=== PATIENT | female | born 1960 | race Caucasian/White ===

== ENCOUNTER 2018-04-07 16:03 | Inpatient (IN) | payer BC, SELFPAY ==
[2018-04-07 17:02] LABS: Absolute Lymphocytes (CBC) 1.2 K/uL (0.7-4.9); Absolute Monocytes 1.3 K/uL (0.1-1.3); Absolute Neutrophil 14.3 K/uL (1.8-8.0); Basophils % 0.4 % (0-1.3); Eosinophils % 0.1 % (0-4.4); Hematocrit 37.5 % (36.0-45.0); Lymphocytes % 7.3 % (15.3-44.8); MCH 30.1 pg (27.0-35.0); MCV 88.8 fL (80-100); MPV 8.1 fL (7.6-11.3); Monocytes % 7.4 % (3.3-12.3); RBC Red Blood Cell Count 4.22 M/uL (3.86-4.86)
[2018-04-07 17:05] LABS: Protime INR 1.18
[2018-04-07] MEDS ORDERED: NA CHLORIDE 0.9% 2,000 ML ONE (17:10)
[2018-04-07] MEDS ORDERED: ONDANSETRON 4 MG/2 ML VIAL ONE ×2 (17:10→18:03)
[2018-04-07] MEDS ORDERED: FENTANYL CITR 100 MCG/2 ML ONE ×2 (17:10→18:37)
[2018-04-07 17:24] LABS: ALT/SGPT 23 U/L (12-78); AST/SGOT 15 U/L (15-37); Albumin 3.6 g/dL (3.4-5.0); Alkaline Phosphatase 78 U/L (45-117); BUN Blood Urea Nitrogen 10 mg/dL (7-18); Bicarbonate 21 mmol/L (21-32); Bilirubin Direct 0.2 mg/dL (0-0.2); Bilirubin Total 0.9 mg/dL (0.2-1.0); Glucose Level 102 mg/dL (74-106); Lipase 102 U/L (73-393); Magnesium 2.4 mg/dL (1.8-2.4); NT PRO-BNP 225 pg/mL (<125); Potassium 3.6 mmol/L (3.5-5.1); Protein, Total 8.1 g/dL (6.4-8.2); Sodium Level 136 mmol/L (136-145); Troponin (Emerg Dept Use Only) < 0.02 ng/mL (0.0-0.045)
[2018-04-07 17:32] LABS: Urine Blood 2+ (NEG); Urine Glucose NEGATIVE (NEG); Urine Protein NEGATIVE (NEG); Urine pH 5.5 (5.0-7.0)
--- NOTE | 2018-04-07 17:52 | RAD REPORT ---
EXAM DESCRIPTION: CT - Abdomen Pelvis W Contrast - 04/07/2018 5:39 pm CLINICAL HISTORY: Abdominal pain COMPARISON: None. TECHNIQUE: Biphasic, helical CT imaging of the abdomen and pelvis was performed following 100 ml non -ionic IV contrast. No oral contrast. All CT scans are performed using dose optimization technique as appropriate and may include automated exposure control or mA/KV adjustment according to patient size. FINDINGS: No suspicious findings in the lung bases. Patient has a very minimal hiatal hernia. No per icardial thickening or effusion. The liver, spleen, and pancreas show no suspicious findings. Gallbladder and biliary tree are also wi thout suspicious finding. Symmetric renal function is seen with no hydronephrosis or suspicious renal mass. Fully contracted ur inary bladder shows no suspicious finding. Uterus is absent. No acute ovarian finding. No gastric acute finding. No acute small bowel finding. No acute process of the colon. The appendix is grossly abnormal dilated to 13 mm with wall thickening. Periappendiceal inflammatory stranding is present. There are multiple 4-6 mm sized appendicoliths. Small quantity of free fluid is present in the right adnexa and dependent portion of the pelvis. No abscess or free air. Base of the appendix is in a classic right lower quadrant location. Daily the appendix extends posteriorly and i nferiorly into the pelvis. No hernia, mass or bulky lymphadenopathy. No adrenal abnormality. No suspicious bony findings. IMPRESSION: Acute appendicitis with probable perforation. Multiple appendicoliths are present. No abscess or free air. Base of the appendix is classic right lower quadrant location with the tip of the appendix extending posteriorly and inferiorly into the pelvis.
--- NOTE | 2018-04-07 17:57 | ER ---
Nurse's Notes [facility] Name: Sherita Gonzalez Age: 57 yrs Sex: Female : 1960 Arrival Date: 04/07/2018 Time: 16:09 Bed 30 Private MD: Diagnosis: Acute appendicitis with generalized peritonitis Presentation: 04/07 16:23 Presenting complaint: Patient states: upper abd pain that began yesterday. Pt reports aa5 nausea, denies vomiting. Transition of care: patient was not received from another setting of care. Onset of symptoms was March 2018. Risk Assessment: Do you want to hurt yourself or someone else? Patient reports no desire to harm self or others. Initial Sepsis Screen: Does the patient meet any 2 criteria? No. Patient's initial sepsis screen is negative. Does the patient have a suspected source of infection? No. Patient's initial sepsis screen is negative. Care prior to arrival: None. 16:23 Method Of Arrival: Wheelchair aa5 16:23 Acuity: TRACEE 2 aa5 Historical: - Allergies: 16:26 No Known Allergies; aa5 - Home Meds: 16:26 Omeprazole Oral [Active]; sertraline 100 mg oral tab [Active]; aa5 - PMHx: 16:26 Acid Reflux; aa5 - PSHx: 16:26 Partial hysterectomy; aa5 - Immunization history:: Flu vaccine is not up to date. - Social history:: Smoking status: Patient/guardian denies using tobacco. - Ebola Screening: : No symptoms or risks identified at this time. Screenin:39 Abuse screen: Denies threats or abuse. Nutritional screening: No deficits noted. tl3 Tuberculosis screening: No symptoms or risk factors identified. Fall Risk None identified. Assessment: 16:39 General: Appears uncomfortable, well groomed, well developed, well nourished, Behavior tl3 is cooperative, appropriate for age. Pain: Complains of pain in abdomen. Neuro: Level of Consciousness is awake, alert, obeys commands. Cardiovascular: Patient's skin is warm and dry. Respiratory: Airway is patent Respiratory effort is even, unlabored, Respiratory pattern is regular, symmetrical. Respiratory: Reports cough that is dry, since couple of weeks. GI: Bowel sounds present X 4 quads. Abdomen is tender to palpation X 4 quads. : No signs and/or symptoms were reported regarding the genitourinary system. EENT: No signs and/or symptoms were reported regarding the EENT system. Derm: No signs and/or symptoms reported regarding the dermatologic system. Musculoskeletal: No signs and/or symptoms reported regarding the musculoskeletal system. 18:10 Reassessment: No changes from previously documented assessment. Patient and/or family tl3 updated on plan of care and expected duration. Pain level reassessed. Patient is alert, oriented x 3, equal unlabored respirations, skin warm/dry/pink. family at bedside POC discussed, awaiting surgeon to come assess pt. 18:30 Reassessment: No changes from previously documented assessment. Patient and/or family tl3 updated on plan of care and expected duration. Pain level reassessed. Patient is alert, oriented x 3, equal unlabored respirations, skin warm/dry/pink. surgery here to transport pt. Vital Signs: 16:26 BP 86 / 66; Pulse 92; Resp 18 S; Temp 98.9(TE); Pulse Ox 96% on R/A; Pain 9/10; aa5 16:39 BP 137 / 81; Pulse 88; Resp 18; Pulse Ox 98% on R/A; tl3 18:10 BP 112 / 66; Pulse 84; Resp 18; Pulse Ox 100% on R/A; tl3 18:30 BP 112 / 66; Pulse 86; Resp 18; Temp 99(O); Pulse Ox 100% on R/A; tl3 ED Course: 16:09 Patient arrived in ED. mr 16:24 Triage completed. aa5 16:24 Arm band placed on. aa5 16:30 Boris Bertrand PA is PHCP. jr8 16:30 Estuardo Valencia MD is Attending Physician. jr8 16:30 Skye Orlando, DESIRE is Primary Nurse. tl3 16:39 Patient has correct armband on for positive identification. Bed in low position. Side tl3 rails up X 1. Adult w/ patient. gambling monitor on. Pulse ox on. NIBP on. 16:39 No provider procedures requiring assistance completed. tl3 16:39 X-ray(s) taken. tl3 16:57 XRAY Chest (1 view) Sent. tl3 17:07 XRAY Chest (1 view) In Process Unspecified. EDMS 17:08 EKG done, by ED staff. tm3 17:[address] via wheelchair. vm2 17:38 CT completed. Patient tolerated procedure well. Patient moved back from CT. vm2 17:53 Surgeon called and connected Dr. Iraheta with Boris ROLAND for patient admission consultation. eb 17:56 Harman Iraheta MD is Hospitalizing Provider. jr8 18:03 CT Abd/Pelvis - W/Contrast In Process Unspecified. EDMS 18:30 Patient admitted, IV remains in place. tl3 Administered Medications: 16:56 Drug: NS 0.9% 1000 ml Route: IV; Rate: 1000 ml; Site: right forearm; Delivery: Primary tl3 tubing; 18:58 Follow up: IV Status: Infusion continued upon admission tl3 16:56 Drug: Zofran 4 mg Route: IVP; Infused Over: 2 mins; Site: right femoral; tl3 18:57 Follow up: Response: No adverse reaction tl3 16:56 Drug: NS 0.9% 1000 ml Route: IV; Rate: 1000 ml; Site: right forearm; Delivery: Primary tl3 tubing; 18:57 Follow up: IV Status: Completed infusion; IV Intake: 1000ml tl3 16:57 Drug: fentaNYL (PF) 50 mcg Route: IVP; Infused Over: 2 mins; Site: right forearm; tl3 18:57 Follow up: Response: No adverse reaction tl3 18:11 Drug: Zosyn 3.375 grams Route: IVPB; Infused Over: 60 mins; Site: right forearm; tl3 Delivery: Primary tubing; 18:56 Follow up: IV Status: Infusion continued upon admission; IV Intake: 30ml tl3 Intake: 18:56 IV: 30ml; Total: 30ml. tl3 18:57 IV: 1000ml; Total: 1030ml. tl3 Outcome: 17:56 Decision to Hospitalize by Provider. jr8 18:30 Admitted to OR accompanied by nurse, via stretcher, with chart. tl3 18:30 Condition: stable 18:30 Instructed on the need for admit. 18:59 Patient left the ED. tl3 Signatures: Dispatcher [employer] EDMS Gigi Vee tm3 Jessica Parkinson mr Ada Hernandez, RN RN aa5 Boris Bertrand PA PA jr8 Angelina Daley 2 Skye Orlando RN RN tl3 Odilia Hay Corrections: (The following items were deleted from the chart) 16:27 16:23 Acuity: TRACEE 3 aa5 aa5
--- NOTE | 2018-04-07 17:57 | EDPHYS ---
Physician Documentation [facility] Name: Sherita Gonzalez Age: 57 yrs Sex: Female : 1960 Arrival Date: 04/07/2018 Time: 16:09 Bed 30 Private MD: ED Physician Estuardo Valencia HPI: 04/07 16:39 This 57 yrs old Female presents to ER via Wheelchair with complaints of jr8 Abdominal Pain. 16:39 The patient presents with abdominal pain that is diffuse. Onset: The symptoms/episode jr8 began/occurred acutely, today. The symptoms do not radiate. Associated signs and symptoms: Pertinent positives: nausea and vomiting. The symptoms are described as stabbing. Modifying factors: The symptoms are alleviated by nothing, the symptoms are aggravated by movement. Severity of pain: At its worst the pain was moderate in the emergency department the pain is unchanged. The patient has not experienced similar symptoms in the past. The patient has not recently seen a physician. Historical: - Allergies: 16:26 No Known Allergies; aa5 - Home Meds: 16:26 Omeprazole Oral [Active]; sertraline 100 mg oral tab [Active]; aa5 - PMHx: 16:26 Acid Reflux; aa5 - PSHx: 16:26 Partial hysterectomy; aa5 - Immunization history:: Flu vaccine is not up to date. - Social history:: Smoking status: Patient/guardian denies using tobacco. - Ebola Screening: : No symptoms or risks identified at this time. ROS: 16:39 Eyes: Negative for injury, pain, redness, and discharge, ENT: Negative for injury, jr8 pain, and discharge, Neck: Negative for injury, pain, and swelling, Cardiovascular: Negative for chest pain, palpitations, and edema, Respiratory: Negative for shortness of breath, cough, wheezing, and pleuritic chest pain, Back: Negative for injury and pain, MS/Extremity: Negative for injury and deformity, Skin: Negative for injury, rash, and discoloration, Neuro: Negative for headache, weakness, numbness, tingling, and seizure. 16:39 Abdomen/GI: Positive for abdominal pain, nausea and vomiting, Negative for diarrhea, abdominal cramps, abdominal distension, anorexia, dysphagia, hematemesis, black/tarry stool, rectal pain, rectal bleeding, bowel incontinence, flatulence. Exam: 16:39 Eyes: Pupils equal round and reactive to light, extra-ocular motions intact. Lids and jr8 lashes normal. Conjunctiva and sclera are non-icteric and not injected. Cornea within normal limits. Periorbital areas with no swelling, redness, or edema. ENT: Nares patent. No nasal discharge, no septal abnormalities noted. Tympanic membranes are normal and external auditory canals are clear. Oropharynx with no redness, swelling, or masses, exudates, or evidence of obstruction, uvula midline. Mucous membranes moist. Neck: Trachea midline, no thyromegaly or masses palpated, and no cervical lymphadenopathy. Supple, full range of motion without nuchal rigidity, or vertebral point tenderness. No Meningismus. Cardiovascular: Regular rate and rhythm with a normal S1 and S2. No gallops, murmurs, or rubs. Normal PMI, no JVD. No pulse deficits. Respiratory: Lungs have equal breath sounds bilaterally, clear to auscultation and percussion. No rales, rhonchi or wheezes noted. No increased work of breathing, no retractions or nasal flaring. Back: No spinal tenderness. No costovertebral tenderness. Full range of motion. Skin: Warm, dry with normal turgor. Normal color with no rashes, no lesions, and no evidence of cellulitis. MS/ Extremity: Pulses equal, no cyanosis. Neurovascular intact. Full, normal range of motion. Neuro: Awake and alert, GCS 15, oriented to person, place, time, and situation. Cranial nerves II-XII grossly intact. Motor strength 5/5 in all extremities. Sensory grossly intact. Cerebellar exam normal. Normal gait. 16:39 Abdomen/GI: Inspection: abdomen appears normal, Bowel sounds: normal, in the right upper quadrant and left upper quadrant, diminished, in the right lower quadrant and left lower quadrant, Palpation: soft, in all quadrants, moderate abdominal tenderness, in the left upper quadrant, right lower quadrant and left lower quadrant, mass, is not appreciated, rebound tenderness, is appreciated in the right lower quadrant, voluntary guarding, is not appreciated, involuntary guarding, is not appreciated, no appreciated organomegaly, Indicators: McBurney's point is tender, Blount's sign is negative, Rovsing's sign is negative, Liver: tenderness, is not appreciated. Vital Signs: 16:26 BP 86 / 66; Pulse 92; Resp 18 S; Temp 98.9(TE); Pulse Ox 96% on R/A; Pain 9/10; aa5 16:39 BP 137 / 81; Pulse 88; Resp 18; Pulse Ox 98% on R/A; tl3 18:10 BP 112 / 66; Pulse 84; Resp 18; Pulse Ox 100% on R/A; tl3 18:30 BP 112 / 66; Pulse 86; Resp 18; Temp 99(O); Pulse Ox 100% on R/A; tl3 MDM: 16:30 Patient medically screened. 17:54 Data reviewed: vital signs, nurses notes, lab test result(s), radiologic studies, CT [facility] scan, plain films, and as a result, I will admit patient. Data interpreted: Pulse oximetry: on room air is 98 %. Interpretation: normal. Counseling: I had a detailed discussion with the patient and/or guardian regarding: the historical points, exam findings, and any diagnostic results supporting the discharge/admit diagnosis, lab results, radiology results, the need for further work-up and treatment in the hospital. Physician consultation: Harman Iraheta MD was called at 17:55, was contacted at 17:55, regarding admission, to the operating room, consult, patient's condition, and will see patient in OR, shortly. 04/07 16:30 Order name: Basic Metabolic Panel; Complete Time: 17:04/07 16:30 Order name: CBC with Diff; Complete Time: 17:04/07 16:30 Order name: LFT's; Complete Time: 17:04/07 16:30 Order name: Magnesium; Complete Time: 17:04/07 16:30 Order name: NT PRO-BNP; Complete Time: 17:04/07 16:30 Order name: PT-INR; Complete Time: 17:08 04/07 16:30 Order name: Troponin (emerg Dept Use Only); Complete Time: 17:04/07 16:30 Order name: XRAY Chest (1 view) 04/07 16:30 Order name: Lipase; Complete Time: 17:04/07 17:14 Order name: CT Abd/Pelvis - W/Contrast 04/07 17:22 Order name: Urine Dipstick--Ancillary (enter results) 04/07 16:30 Order name: EKG; Complete Time: 16:31 [facility] 04/07 16:30 Order name: Cardiac monitoring; Complete Time: 16:57 [facility] 04/07 16:30 Order name: EKG - Nurse/Tech; Complete Time: 16:57 [facility] 04/07 16:30 Order name: IV Saline Lock; Complete Time: 16:57 [facility] 04/07 16:30 Order name: Labs collected and sent; Complete Time: 16:57 [facility] 04/07 16:30 Order name: O2 Per Protocol; Complete Time: 16:57 [facility] 04/07 16:30 Order name: O2 Sat Monitoring; Complete Time: 16:57 Administered Medications: 16:56 Drug: NS 0.9% 1000 ml Route: IV; Rate: 1000 ml; Site: right forearm; Delivery: Primary tl3 tubing; 18:58 Follow up: IV Status: Infusion continued upon admission tl3 16:56 Drug: Zofran 4 mg Route: IVP; Infused Over: 2 mins; Site: right femoral; tl3 18:57 Follow up: Response: No adverse reaction tl3 16:56 Drug: NS 0.9% 1000 ml Route: IV; Rate: 1000 ml; Site: right forearm; Delivery: Primary tl3 tubing; 18:57 Follow up: IV Status: Completed infusion; IV Intake: 1000ml tl3 16:57 Drug: fentaNYL (PF) 50 mcg Route: IVP; Infused Over: 2 mins; Site: right forearm; tl3 18:57 Follow up: Response: No adverse reaction tl3 18:11 Drug: Zosyn 3.375 grams Route: IVPB; Infused Over: 60 mins; Site: right forearm; tl3 Delivery: Primary tubing; 18:56 Follow up: IV Status: Infusion continued upon admission; IV Intake: 30ml tl3 Disposition: 04/07/18 17:56 Hospitalization ordered by Harman Iraheta for Inpatient Admission. Preliminary diagnosis is Acute appendicitis with generalized peritonitis. - Bed requested for Operating Room. - Status is Inpatient Admission. tl3 - Condition is Fair. - Problem is new. - Symptoms have improved. UTI on Admission? No Addendum: 04/10/2018 08:13 Co-signature as Attending Physician, Estuardo Valencia MD I agree with the assessment and c anguiano plan of care. Signatures: Dispatcher [employer] Estuardo Patel MD MD cha Calderon, Audri, RN RN aa5 Boris Bertrand PA PA jr8 Skye Orlando, RN RN tl3 Corrections: (The following items were deleted from the chart) 04/07 17:56 17:54 EKG - Nurse/Tech ordered. jr8 jr8 17:57 16:39 Abdomen/GI: Inspection: abdomen appears normal, Bowel sounds: high pitched, all jr8 quadrants. Palpation: soft, in all quadrants, moderate abdominal tenderness, in the left upper quadrant, right lower quadrant and left lower quadrant, mass, is not appreciated, rebound tenderness, is not appreciated, voluntary guarding, is not appreciated, involuntary guarding, is not appreciated, no appreciated organomegaly, Indicators: McBurney's point is not tender, Blount's sign is negative, Rovsing's sign is negative, Liver: tenderness, is not appreciated, jr8 18:59 17:56 Hospitalization Ordered by Harman Iraheta MD for Inpatient Admission. Preliminary tl3 diagnosis is Acute appendicitis with generalized peritonitis. Bed requested for Operating Room. Status is Inpatient Admission. Condition is Fair. Problem is new. Symptoms have improved. UTI on Admission? No. jr8
[2018-04-07] MEDS ORDERED: HYDROMORPHONE HCL 1 MG/ML INJ ONE ×2 (18:03→20:37)
[2018-04-07] MEDS ORDERED: PIPER/TAZO/NS 3.375gm 3.375 GM/100 ML BAG ONE (18:06)
--- NOTE | 2018-04-07 18:31 | RAD REPORT ---
EXAM DESCRIPTION: RAD - Chest Single View - 04/07/2018 5:06 pm CLINICAL HISTORY: Abdominal pain, appendicitis, preop chest examination COMPARISON: None. TECHNIQUE: AP portable chest image was obtained 1642 hours . FINDINGS: Lungs are clear. Heart and vasculature are normal. No measurable pleural effusion and no p neumothorax. No acute bony abnormality seen. No acute aortic findings suspected. IMPRESSION: No acute cardiopulmonary process.
[2018-04-07] MEDS ORDERED: MIDAZOLAM HCL 2 MG/2 ML INJ ONE (18:37)
[2018-04-07] MEDS ORDERED: PROPOFOL 200 MG/20 ML VIAL IV ONE (18:37)
[2018-04-07] MEDS ORDERED: GLYCOPYRROLATE 0.2 MG/ML SYR ONE (18:37)
[2018-04-07] MEDS ORDERED: ONDANSETRON HCL 40 MG/20 ML VIAL ONE (18:38)
[2018-04-07] MEDS ORDERED: KETOROLAC 30 MG/ML INJ ONE (18:38)
[2018-04-07] MEDS ORDERED: NEOSTIGMINE 1 MG/ML -5 ML SYRINGE ONE (18:38)
[2018-04-07] MEDS ORDERED: LIDOCAINE 2% MPF 5 ML VIAL ONE (18:38)
[2018-04-07] MEDS ORDERED: ROCURONIUM 50 MG/5 ML VIAL IV ONE (18:38)
[2018-04-07] MEDS ORDERED: Ringers Lactate 1,000 ML IV ONE ×2 (18:55→20:28)
--- NOTE | 2018-04-07 19:36 | PREOPHP ---
Date of Admission: 04/07/2018 Reason: Abdominal pain. History Of Present Illness: The patient is a 57-year-old female, who presents with approximately 24- hour history of lower abdominal pain associated with nausea. No vomiting. No anorexia. No diarrhea or constipation. No blood in her stool. No dysuria, hematuria. No sore throat, runny nose, cough, headaches, or dizziness. No chest pain. No fever or chills. The pain is more on the right lower qu adrant than in the suprapubic or the left lower quadrant. Review of Systems: Otherwise, unremarkable. Past Medical History: Significant for depression, acid reflux. Past Surgical History: Vaginal partial hysterectomy. Allergies: NO ALLERGIES. Social History: She denies smoking or drinking. Family History: Significant for diabetes. Physical Examination: Vital Signs: Stable. She is afebrile. General: She is awake, alert, and oriented x3. Head and Neck: Cranial nerves 2 through 12 are grossly within normal limits. No neck masses. No JV D. Throat clear. Neck is supple. Chest: Clear. Heart: S1, S2. Abdomen: Soft, nondistended. Positive bowel sounds. Positive lower abdominal tenderness mostly on the right lower quadrant. There is rebound on the right lower quadrant, but there is no peritoneal s olids elsewhere in the abdomen. Extremities: Adequately perfused. Nontender. Neuro: Nonfocal. Laboratory Data: CT of the abdomen and pelvis reviewed shows acute appendicitis with probable perfor ation, multiple pedicles are present. No abscess or free air. Base of the appendix is classic. Rig ht lower quadrant location with the tip of the appendix extending posteriorly and inferiorly into the pelvis. White count is 16.9 with a left shift. INR is 1.18. Chemistry reviewed. Assessment: A 57-year-old female with probable acute perforated appendicitis. Plan: Admit, n.p.o., IV fluid, IV antibiotic, to the OR for laparoscopic appendectomy, possible open . The patient understands the risks, benefits, and alternatives and agrees to procedure. /MODL Voice ID: [id number]
--- NOTE | 2018-04-07 20:54 | OP ---
Date of Procedure: 04/07/2018 Surgeon: Harman Iraheta MD Preoperative Diagnosis: Acute perforated appendicitis. Postoperative Diagnosis: Acute perforated appendicitis. Procedure: Laparoscopic appendectomy. Estimated Blood Loss: Minimal. Specimen: Appendix. Findings: As above with some free fecaliths in the peritoneal cavity and significant perforation of the appendix itself. Anesthesia: General. Complications: None. Drains: SILVINA #7 flat. Disposition: The patient tolerated the procedure in stable condition and taken to Recovery in good g eneral condition. Procedure In Detail: The patient was brought to the OR and placed in the supine position. General a nesthesia was begun. The patient was prepped and draped in usual sterile fashion. Marcaine 0.5% was infiltrated locally. A 15-blade was used to make a 1 cm infraumbilical midline incision and subcuta neous tissue divided. The fascia was identified and divided. A #1 Vicryl stay suture was placed. P eritoneal cavity was entered with blunt dissection. A 12-mm trocar was placed into the peritoneal ca vity under direct vision. Pneumoperitoneum was established. Then, two 5 mm trocars were placed, 1 i n the suprapubic region and 1 in the left lower quadrant. Laparoscopy revealed a very ischemic perfo rated appendix with some free panniculus nearby and base of the appendix; however, was very healthy a nd there was some pus in the pelvis and the right lower quadrant. The pus was aspirated. The append ix was freed from the abdominal wall with sharp and blunt dissection. Mesoappendix was clearly ident ified. Endo-HEATHER stapling device was used to divide that and then the base of the appendix on the cec um, which was healthy was identified and the Endo-HEATHER stapling device was used to divide that. Then, the appendix in the fecaliths that was free were removed via an EndoCatch bag and then the right per icolic gutter, right lower quadrant, pelvis, left side of the pelvis were examined and thoroughly irr igated. Effluent was clear. There is no evidence of bleeding and or bowel injury appreciated. Subs equently, where the appendix was there was some secondary inflammatory tissue present, therefore it w as decided to place a 7-mm flat drain through the suprapubic port and secured it with 3-0 nylon and t he drain itself was resting in the right lower quadrant and the pelvis. Subsequently, all trocars we re removed under direct vision. Stay sutures were tied to each other to reapproximate the fascial de fect. Subcu wounds irrigated. Bleeding controlled with cautery. A 3-0 chromic used to reapproximat e the subcutaneous tissue and kim used to close the skin. Sterile dressing was applied. The pat ient was awakened and taken to Recovery in good general condition. /MODL Voice ID: [id number] Report ID: [id number]
[2018-04-07] MEDS ORDERED: ONDANSETRON 4 MG/2 ML VIAL IV PRN (22:59)
[2018-04-07] MEDS ORDERED: HYDROMORPHONE HCL 1 MG/ML INJ IV PRN (22:59)
[2018-04-07] MEDS ORDERED: ONDANSETRON HCL 40 MG/20 ML VIAL IV PRN (22:59)
[2018-04-07] MEDS: HYDROCODONE/APAP 7.5/325 MG TAB PO PRN (23:28)
[2018-04-07] MEDS: NA CHLORIDE 0.9% 1,000 ML IV ONE (23:28)
[2018-04-07] MEDS: Ringers Lactate 1,000 ML IV SCH (23:45)
[2018-04-08] MEDS ORDERED: PIPER/TAZO/NS 3.375gm 3.375 GM/100 ML BAG ONE ×2 (00:38→06:12)
[2018-04-08] MEDS: METRONIDAZOLE 500mg IVPB 500 MG/100 ML BAG IV SCH ×5 (00:38→23:52)
[2018-04-08] MEDS: PIPER/TAZO/NS 3.375gm 3.375 GM/100 ML BAG IVPB SCH ×4 (01:48→22:00)
[2018-04-08] MEDS: NA CHLORIDE 0.9% 1,000 ML IV ONE (02:02)
[2018-04-08] MEDS: HYDROCODONE/APAP 7.5/325 MG TAB PO PRN ×4 (04:05→19:24)
[2018-04-08] MEDS: Ringers Lactate 1,000 ML IV SCH ×3 (05:11→22:31)
[2018-04-08 06:23] LABS: Absolute Lymphocytes (CBC) 0.7 K/uL (0.7-4.9); Absolute Monocytes 0.5 K/uL (0.1-1.3); Absolute Neutrophil 11.7 K/uL (1.8-8.0); Basophils % 0.1 % (0-1.3); Eosinophils % 0.1 % (0-4.4); Hematocrit 30.6 % (36.0-45.0); Lymphocytes % 5.3 % (15.3-44.8); MCH 30.8 pg (27.0-35.0); MCV 89.8 fL (80-100); MPV 8.1 fL (7.6-11.3); Monocytes % 4.1 % (3.3-12.3); RBC Red Blood Cell Count 3.41 M/uL (3.86-4.86)
[2018-04-08 06:49] LABS: Phosphorus 2.4 mg/dL (2.5-4.9); Potassium 3.6 mmol/L (3.5-5.1)
--- NOTE | 2018-04-08 07:00 | EKG ---
Test Date: 2018-04-07 Test Time: 17:02:18 Lithographic Camera Operator: FRANK MEASUREMENT RESULTS: Intervals: Rate: 83 CT: 164 QRSD: 74 QT: 368 QTc: 432 [place]: P: 34 CT: 164 QRS: 0 T: 38 INTERPRETIVE STATEMENTS: Normal sinus rhythm Normal ECG No previous ECG available for comparison Electronically Signed On 04-08-18 06:59:09 OPERATIONS DEVELOPER by Alexei Correa
[2018-04-08 07:23] LABS: Blood Morphology Comment NOT SEEN (NOT SEEN); Platelet Estimate ADEQ
[2018-04-08] MEDS ORDERED: NA CHLORIDE 0.9% 1,000 ML IV ONE ×2 (09:43→20:31)
[2018-04-08] MEDS ORDERED: MAGNES/ALUMIN/SIMET 30ML UCUP PO PRN (11:15)
[2018-04-08] MEDS ORDERED: SODIUM CHLORIDE 0.9% 10ML INJ IV PRN (11:16)
--- NOTE | 2018-04-08 11:16 | PN ---
Date of Progress Note: 04/08/2018 Subjective: The patient is awake, alert. Her blood pressure was in the 80s and 90s. The last time she got 2 fluid boluses of saline in the reach over 2 hours each. She is awake, alert, no complaint. Minimal lower abdominal pain, incisional mostly. She is not tachycardic. She is tolerating some c lear liquids. Objective: Vital Signs: Temperature 98.2, pulse rate is 93, blood pressure is 95/61. Abdomen: Soft. Dressing is clean, dry, and intact. Laboratory Data: Shows a white count of 13, H and H is 10.5 and 30.6. There is a left shift and the SILVINA drain put out 100 cc of serosanguineous cloudy fluid. No bright red blood seen. Assessment: Status post laparoscopic appendectomy for perforated appendicitis with sepsis likely. Recommendations: We will continue to resuscitate with fluid. The patient is clinically doing well. Continue IV antibiotics. Encourage ambulation as her blood pressure is controlled. Incentive millie metry and DVT prophylaxis. /MODL Voice ID: [id number] Report ID: [id number]
[2018-04-08] MEDS: PANTOPRAZOLE 40 MG INJ IVP SCH (11:44)
[2018-04-09] MEDS: HYDROCODONE/APAP 7.5/325 MG TAB PO PRN ×4 (00:57→22:41)
[2018-04-09 05:30] LABS: Absolute Lymphocytes (CBC) 0.9 K/uL (0.7-4.9); Absolute Monocytes 0.5 K/uL (0.1-1.3); Absolute Neutrophil 11.2 K/uL (1.8-8.0); Basophils % 0.2 % (0-1.3); Eosinophils % 0.7 % (0-4.4); Hematocrit 27.5 % (36.0-45.0); Lymphocytes % 7.1 % (15.3-44.8); MCH 30.6 pg (27.0-35.0); MCV 91.2 fL (80-100); MPV 8.3 fL (7.6-11.3); Monocytes % 4.2 % (3.3-12.3); RBC Red Blood Cell Count 3.02 M/uL (3.86-4.86)
[2018-04-09] MEDS: METRONIDAZOLE 500mg IVPB 500 MG/100 ML BAG IV SCH ×3 (05:47→16:53)
[2018-04-09] MEDS: Ringers Lactate 1,000 ML IV SCH ×3 (05:48→16:53)
[2018-04-09] MEDS: PIPER/TAZO/NS 3.375gm 3.375 GM/100 ML BAG IVPB SCH ×3 (05:48→21:24)
[2018-04-09] MEDS ORDERED: POTASSIUM CL SA 10 MEQ TAB PO ONE (09:00)
[2018-04-09] MEDS: PANTOPRAZOLE 40 MG INJ IVP SCH (10:07)
--- NOTE | 2018-04-09 10:37 | PN ---
Date of Progress Note: 04/09/2018 Subjective: The patient is awake and alert, was given 1 more fluid bolus last night for low blood pr essure, but she is not tachycardic and when she gets up, she does not feel dizzy. She is really not symptomatic from her low blood pressure. I believe that her baseline blood pressure may be low, arturo lorenzo, given her current condition with a perforated appendicitis, I am going to treat as partial sepsi s. Her white count is 12.8. She is tolerating diet. She had some diarrhea yesterday. Her abdomen is soft, nondistended, nontender. SILVINA is putting out serous fluid 50 cc. Assessment: Status post laparoscopic appendectomy for perforated appendicitis. Recommendation: We will advance her diet to full liquids today. Continue IV antibiotics. We will c heck stool for C. diff. Encourage ambulation and incentive spirometry. /MODL Voice ID: [id number] Report ID: [id number]
[2018-04-09] MEDS ORDERED: ACETAMINOPHEN 500 MG TAB PO PRN (15:36)
[2018-04-09] MEDS ORDERED: ONDANSETRON 4 MG/2 ML VIAL IV PRN (15:39)
[2018-04-10] MEDS: METRONIDAZOLE 500mg IVPB 500 MG/100 ML BAG IV SCH ×4 (00:52→17:41)
[2018-04-10] MEDS: Ringers Lactate 1,000 ML IV SCH ×4 (00:52→17:38)
[2018-04-10] MEDS: PIPER/TAZO/NS 3.375gm 3.375 GM/100 ML BAG IVPB SCH ×3 (05:09→21:07)
[2018-04-10 05:59] LABS: Absolute Lymphocytes (CBC) 0.9 K/uL (0.7-4.9); Absolute Monocytes 0.5 K/uL (0.1-1.3); Absolute Neutrophil 9.4 K/uL (1.8-8.0); Basophils % 0.1 % (0-1.3); Eosinophils % 1.9 % (0-4.4); Hematocrit 27.9 % (36.0-45.0); MCH 31.3 pg (27.0-35.0); MCV 89.9 fL (80-100); MPV 8.7 fL (7.6-11.3); Monocytes % 4.2 % (3.3-12.3)
[2018-04-10 06:07] LABS: BUN Blood Urea Nitrogen 5 mg/dL (7-18); Bicarbonate 26 mmol/L (21-32); Glucose Level 90 mg/dL (74-106); Potassium 3.1 mmol/L (3.5-5.1); Sodium Level 142 mmol/L (136-145)
[2018-04-10] MEDS: HYDROCODONE/APAP 7.5/325 MG TAB PO PRN ×3 (07:43→20:02)
[2018-04-10] MEDS ORDERED: POTASSIUM CL SA 10 MEQ TAB PO ONE ×2 (09:00→16:24)
[2018-04-10] MEDS: PANTOPRAZOLE 40 MG INJ IVP SCH (09:21)
--- NOTE | 2018-04-10 16:33 | PN ---
Date of Progress Note: 04/10/2018 Subjective: The patient is awake, alert, feels better. Vital signs stable. Afebrile. [place] [address], slightly improved. Abdomen is benign. SILVINA put out 70 cc las t shift serous fluid. Assessment: Status post laparoscopic appendectomy for perforated appendicitis. Recommendation: We will advance diet to regular diet. Decrease the IV fluids. Encourage ambulation . Hopefully tomorrow, if the patient is clinically stable, we will consider discharge. /MODL Voice ID: [id number] Report ID: [id number]
[2018-04-11] MEDS: METRONIDAZOLE 500mg IVPB 500 MG/100 ML BAG IV SCH ×3 (01:00→11:38)
[2018-04-11] MEDS: HYDROCODONE/APAP 7.5/325 MG TAB PO PRN ×3 (05:15→15:56)
[2018-04-11] MEDS: PIPER/TAZO/NS 3.375gm 3.375 GM/100 ML BAG IVPB SCH ×2 (05:53→14:00)
[2018-04-11 06:04] LABS: BUN Blood Urea Nitrogen 6 mg/dL (7-18); Bicarbonate 24 mmol/L (21-32); Glucose Level 85 mg/dL (74-106); Magnesium 2.2 mg/dL (1.8-2.4); Potassium 3.8 mmol/L (3.5-5.1); Sodium Level 140 mmol/L (136-145)
[2018-04-11 06:14] LABS: Absolute Lymphocytes (CBC) 0.9 K/uL (0.7-4.9); Absolute Monocytes 0.6 K/uL (0.1-1.3); Basophils % 0.6 % (0-1.3); Eosinophils % 2.1 % (0-4.4); Hematocrit 32.1 % (36.0-45.0); Lymphocytes % 8.8 % (15.3-44.8); MCH 31.1 pg (27.0-35.0); MPV 8.8 fL (7.6-11.3); Monocytes % 6.1 % (3.3-12.3); RBC Red Blood Cell Count 3.57 M/uL (3.86-4.86)
[2018-04-11] MEDS ORDERED: POTASSIUM CL SA 10 MEQ TAB PO ONE ×2 (07:00)
[2018-04-11] MEDS: Ringers Lactate 1,000 ML IV SCH ×2 (07:31→14:00)
[2018-04-11] MEDS: POTASS/SODIUM PHOSPHATE 1 PKT POWD.PACK PO SCH ×2 (07:31→09:23)
[2018-04-11] MEDS: PANTOPRAZOLE 40 MG INJ IVP SCH (09:23)
[2018-04-11] MEDS ORDERED: POTASS/SODIUM PHOSPHATE 1 PKT POWD.PACK PO ONE ×2 (16:00→17:00)
--- NOTE | 2018-04-12 12:43 | DS ---
Date of Discharge: 04/11/2018 Admitting Diagnosis: Acute perforated appendicitis. Discharge Diagnosis: Acute perforated appendicitis. Procedure Performed: Laparoscopic appendectomy. Hospital Course: The patient is a 57-year-old female, who underwent the aforementioned procedure. P ostoperatively, she had leukocytosis still, but was improving. She had adequate urine output. Her b lood pressure was marginal and fluid boluses were given as needed. Electrolytes were checked and kandace ected and slowly her diet improved. She started liquids on Tuesday and regular diet yesterday. Today , she is tolerating diet, ambulating, pain control with p.o. pain medication. She is afebrile and he r phosphorus was low, is being replaced, and she will go home with some Neutra-Phos as well and the p atient will be discharged to home. Disposition: Home. Condition: Stable. Discharge Instructions: Resume home medications and diet. Activity as tolerated. No heavy lifting. Follow up in my office in a week. Call for appointment. Tylenol No. 3 one tablet p.o. q.4 p.r.n. pain, Cipro 500 mg p.o. q.12, Flagyl 500 mg p.o. q.6. Record SILVINA output q.12, bring record to the off ice. CONNER/RENETTA Voice ID: [id number] Report ID: [id number]
== END 2018-04-11 17:45 | disposition home or self-care (01) | DRG 853 ==
LOC: ER 16:03 → OR 18:05 → 2ND 20:29
PROVIDERS: ADMIT Surgery; ATTEND Surgery
PROC: 0DTJ4ZZ Resection of Appendix, Percutaneous Endoscopic Approach (ICD-10-PCS; principal; 2018-04-07 18:30)
DX: A41.9 Sepsis, unspecified organism (principal); K35.32 Acute appendicitis with perforation, localized peritonitis, and gangrene, without abscess; K63.89 Other specified diseases of intestine
CPT/HCPCS: 36415; 71045; 74177; 80048; 80076; 81003; 83690; 83735; 83880; 84100; 84132; 84484; 85025; 85610; 87493; 88304; 93005; 99285; C9113; J1170; J2250; J2405; J2543; J2704; J2710; J3010; J7030; Q9967